=== PATIENT | male | born 1950 | race African-American/Black ===

== ENCOUNTER 2021-05-15 08:42 | Emergency (ER) | payer MEDICARE ==
[~2021-05-15] VITALS: Ht 165.1 cm; Wt 68.1 kg
[2021-05-15 08:49] VITALS: BP 136/81
[2021-05-15] MEDS ORDERED: KETOROLAC 30 MG/ML VIAL. IM ONE (09:15)
--- NOTE | 2021-05-15 09:34 | RAD ---
XR KNEE _3 VIEWS_LT dated 05/15/2021 8:58 AM. History: Reason: pain / Spl. Instructions: / History: Comparison: None. Findings: No fracture or dislocation is seen. Joint spaces are fairly well-maintained. There is some marginal o steophyte formation. There is no apparent destructive process. Impression: 1. Mild arthritic changes. No apparent acute abnormality. Electronically signed by: Vitaly Barajas Jr., MD (05/15/2021 9:31 AM) [facility]ITAL[facility]
[2021-05-15] MEDS ORDERED: TRAM50TA PO (09:42)
[2021-05-15] MEDS ORDERED: NAPR-695 PO (09:42)
--- NOTE | 2021-05-15 09:43 | PHYS DOC ---
Past Medical History Additional Past Medical Histor: glaucoma Past Surgical History: Other Additional Past Surgical Histo: right hand surgery, right leg surgery Smoking Status: Former Smoker Additional Information: quit smoking 10 years ago Alcohol Use: None General Adult EDM: Chief Complaint: KNEE SWELLING HPI: HPI: Patient is a 71 year old [f__sex] who presents with [] Review of Systems: Review of Systems: Constitutional: Denies fever or chills Eyes: Denies redness or eye pain HENT: Denies nasal congestion or sore throat Respiratory: Denies cough or shortness of breath Cardiovascular: Denies chest pain or palpitations GI: Denies abdominal pain, nausea, or vomiting : Denies dysuria or hematuria Musculoskeletal: Denies back pain or joint pain Integument: Denies rash or skin lesions Neurologic: Denies headache, focal weakness or sensory changes Complete systems were reviewed and found to be within normal limits, except as documented in this note. Heart Score: C/O Chest Pain: N/A Current Medications: Current Medications Medications (Trade) Dose Ordered Sig/Tristian Start Time Stop Time Status Last Admin Dose Admin Ketorolac Tromethamine (Toradol 30mg Vial) 20 mg 1X ONCE 05/15/21 09:15 05/15/21 09:19 DC Allergies: Allergies: Allergies Coded Allergies Type Severity Reaction Last Updated Verified No Known Drug Allergies 05/15/21 No Physical Exam: PE: Constitutional: Well developed, well nourished, no acute distress, non-toxic appearance HENT: Normocephalic, atraumatic Eyes: PERRL, EOMI, conjunctiva normal, no discharge Neck: Normal range of motion, no tenderness, supple Lungs & Thorax: No respiratory distress, equal chest rise and fall Abdomen: Soft, no tenderness Skin: Warm, dry, no erythema, no rash Back: No tenderness, no CVA tenderness Extremities: No tenderness, ROM intact, no edema Neurologic: Alert and oriented X 3, normal motor function, normal sensory function, no focal deficits noted Psychologic: Affect normal, judgment normal Current Patient Data: Vital Signs: Vital Signs Date Time Temp Pulse Resp B/P (MAP) Pulse Ox O2 Delivery O2 Flow Rate FiO2 05/15/21 08:49 98.7 74 16 136/81 (99) 99 Room Air 98.7 EKG: EKG: [] Radiology/Procedures: Radiology/Procedures: PROCEDURE: KNEE LEFT 3V XR KNEE _3 VIEWS_LT dated 05/15/2021 8:58 AM. History: Reason: pain / Spl. Instructions: / History: Comparison: None. Findings: No fracture or dislocation is seen. Joint spaces are fairly well-maintained. There is some marginal osteophyte formation. There is no apparent destructive process. Impression: 1. Mild arthritic changes. No apparent acute abnormality. Electronically signed by: Vitaly Barajas Jr., MD (05/15/2021 9:31 AM) [facility] Course & Med Decision Making: Course & Med Decision Making Pertinent Imaging studies reviewed. (See chart for details) Patient stable for discharge with outpatient follow-up with PCP/Orthopedic surgeon. Orthopedic referral provided. Discussed findings and plan with patient and family, who acknowledge understanding and agreement. Daniel Disclaimer: Daniel Disclaimer: This electronic medical record was generated, in whole or in part, using a voice recognition dictation system. Splinting Splinting : Location: Left knee Pre-Made Type: STEPHANIA bandage Pre-Proc Neuro Vasc Exam: normal Post-Proc Neuro Vasc Exam: normal, unchanged from pre-exam Departure Departure Impression: Primary Impression: Knee pain, left Qualified Codes: M25.562 - Pain in left knee Additional Impression: Arthritis Disposition: HOME / SELF CARE / HOMELESS Condition: STABLE Referrals: NO PCP (PCP) ADALBERTO ZAZUETA Jr. DO Patient Instructions: Arthritis, Nonspecific, [id number], Knee Pain, [id number], Knee Wraps (Elastic Bandage) and RICE Additional Instructions: ICE area 20 minutes on then leave off next 20 minutes. Repeat several times daily for the next few days. Scripts Tramadol Hcl (TRAMADOL HCL) 50 Mg Tablet 50 MG PO Q6HRS PRN for PAIN, #14 TAB May take each tablet with one (1) over the counter Tylenol 325mg. Prov: AVILA WERNER DO 05/15/21 Naproxen (NAPROXEN) 375 Mg Tablet 375 MG PO TID PRN for PAIN, #20 TAB Prov: AVILA WERNER DO 05/15/21 AVILA WERNER DO May 15, 2021 09:43
[2021-05-15] MEDS ORDERED: ACETAMINOPHEN 500 MG TABLET PO ONE (09:45)
[2021-05-15] MEDS ORDERED: traMADol 50 MG TABLET PO ONE (09:45)
== END 2021-05-15 10:09 | disposition home or self-care (01) ==
LOC: ER 08:42
DX: M25.562 Pain in left knee (principal); M17.12 Unilateral primary osteoarthritis, left knee; Z87.891 Personal history of nicotine dependence
CPT/HCPCS: 73562; 96372; 99283; J1885